=== PATIENT | female | born 1975 | race American Indian/Alaskan Native ===

== ENCOUNTER 2021-12-22 22:14 | Emergency (ER) | payer SELFPAY ==
--- NOTE | 2021-12-23 05:49 | XRay Report ---
CHEST 2 VIEWS INDICATION / CLINICAL INFORMATION: Cough, HTN, Hx CHF. FINDINGS: SUPPORT DEVICES: None. HEART / MEDIASTINUM: No significant abnormality. LUNGS / PLEURA: No significant pulmonary or pleural abnormality. No pneumothorax. ADDITIONAL FINDINGS: No significant additional findings. IMPRESSION: 1. No acute findings. Signer Name: Rui Gomez MD Signed: 12/23/2021 5:45 AM Workstation Name: [email or web address]
[2021-12-23] MEDS ORDERED: ASPIRIN 81 MG TAB CHEW PO ONE (09:22)
[2021-12-23] MEDS ORDERED: IPRATROPIUM 0.02% NEBU 2.5 ML IH ONE (09:23)
[2021-12-23] MEDS ORDERED: ALBUTEROL 2.5 MG/3 ML NEBU IH ONE (09:23)
[2021-12-23] MEDS ORDERED: methylPREDNISolone Sod Succinate 125 MG/2 ML INJ IV ONE (09:23)
[2021-12-23] MEDS ORDERED: ACETAMINOPHEN 500 MG TAB PO ONE (09:24)
[2021-12-23] MEDS ORDERED: ONDANSETRON 4 MG/2 ML INJ IV ONE (09:24)
[2021-12-23] MEDS ORDERED: FAMOTIDINE 20 MG/2 ML INJ IV ONE (09:24)
[2021-12-23 10:07] VITALS: BP 151/92
[2021-12-23 10:24] LABS: Mucus,Urine 3+ /HPF
[2021-12-23 10:37] LABS: Basophils % (Auto) 0.5 % (0.0-1.8); Eosinophils # (Auto) 0.1 K/mm3 (0.0-0.4); Eosinophils % (Auto) 2.9 % (0.0-4.3); Hemoglobin 9.9 gm/dl (10.1-14.3); Lymphocytes # (Auto) 0.9 K/mm3 (1.2-5.4); Lymphocytes % (Auto) 21.4 % (13.4-35.0); Mean Corpuscular HGB Conc 31 % (30-34); Mean Corpuscular Volume 80 fl (79-97); Monocytes # (Auto) 0.7 K/mm3 (0.0-0.8); Platelet Count 216 K/mm3 (140-440); Red Cell Distribution Width 18.3 % (13.2-15.2)
[2021-12-23 10:53] LABS: Color,Urine Yellow (Yellow)
[2021-12-23 11:00] LABS: Alanine Aminotransferase 16 units/L (7-56); Albumin 3.7 g/dL (3.9-5); BUN/Creatinine Ratio 12; Blood Urea Nitrogen 17 mg/dL (7-17); Calcium 9.1 mg/dL (8.4-10.2); Hemolysis Index 6
--- NOTE | 2021-12-23 13:00 | Emergency Department Report ---
- General Chief Complaint: Nausea/Vomiting/Diarrhea Stated Complaint: GENERAL ILLINESS Source: patient, EMS Mode of arrival: Stretcher Limitations: No Limitations - History of Present Illness Initial Comments: Patient is a 46-year-old -[place] female with a history of hypertension and CHF who presents to the ED with complaint of acute onset persistent nasal and sinus congestion, diffuse body aches and pains, persistent dry cough with nausea and vomiting intermittently for the last 1 week. Patient states that in the last 2 days she has not been able to keep anything down because of persistent nausea and vomiting. Patient states that the cough and the shortness of breath is worse at night when she lays down to sleep. Patient states that she also ran out of her Lasix that she has previously taken. Patient denies dizziness, syncope, chest pain, diarrhea, abdominal pain, fever, chills, sore throat, dysuria, urinary frequency and urgency or change in vision and diaphoresis or palpitations. MD Complaint: cough, rhinorrhea, nasal congestion, sinus pain, other (Nausea and vomiting) -: Gradual, week(s) (1) Severity: moderate Severity scale (0 -10): 4 Quality: dull, aching Consistency: constant Improves With: nothing Worsens With: nothing Context: sick contacts Associated Symptoms: denies other symptoms, headache, rhinorrhea, nasal co ngestion, cough, shortness of breath, nausea, vomiting. denies: fever, diaphoresis, stiff neck, chest pain, abdominal pain, diarrhea, rash, right sweats, epistaxis, hoarseness, other Treatments Prior to Arrival: "cold medicine" - Related Data Previous Rx's Medication Instructions Recorded Last Taken Type Albuterol Sulfate [Proair 1 - 2 puff IH Q4H PRN #1 inh 12/23/21 Unknown Rx Respiclick] Azithromycin [Zithromax Z-MILADYS] 250 mg PO DAILY #6 tab 12/23/21 Unknown Rx Benzonatate [Tessalon Perles] 100 mg PO Q8HR #30 cap 12/23/21 Unknown Rx Cetirizine HCl [Zyrtec 10mg tab] 10 mg PO DAILY #30 tab 12/23/21 Unknown Rx Furosemide [Lasix TAB] 20 mg PO QDAY #30 tablet 12/23/21 Unknown Rx Ibuprofen [Motrin] 800 mg PO Q8HR PRN #30 tablet 12/23/21 Unknown Rx Ondansetron [Zofran Odt] 4 mg PO Q8HR PRN #20 tab.rapdis 12/23/21 Unknown Rx methylPREDNISolone [Medrol 4MG 4 mg PO DAILY #21 tab 12/23/21 Unknown Rx DOSEPAK (21 tabs)] Allergies Allergy/AdvReac Type Severity Reaction Status Date / Time No Known Allergies Allergy Unverified 12/22/21 22:26 ED Review of Systems ROS: Stated complaint: GENERAL ILLINESS Other details as noted in HPI Constitutional: denies: chills, fever Eyes: denies: eye pain, eye discharge, vision change ENT: congestion. denies: ear pain, throat pain Respiratory: cough, shortness of breath, wheezing Cardiovascular: denies: chest pain, palpitations Endocrine: no symptoms reported Gastrointestinal: nausea, vomiting. denies: abdominal pain, diarrhea Genitourinary: denies: urgency, dysuria, discharge Musculoskeletal: denies: back pain, joint swelling, arthralgia Skin: denies: rash, lesions Neurological: headache. denies: weakness, paresthesias Psychiatric: denies: anxiety, depression Hematological/Lymphatic: denies: easy bleeding, easy bruising ED Past Medical Hx - Past Medical History Hx Hypertension: Yes Hx Congestive Heart Failure: Yes - Social History Smoking Status: Current Every Day Smoker Substance Use Type: None - Medications Home Medications: Home Medications Medication Instructions Recorded Confirmed Last Taken Type Albuterol Sulfate [Proair 1 - 2 puff IH Q4H PRN #1 inh 12/23/21 Unknown Rx Respiclick] Azithromycin [Zithromax Z-MILADYS] 250 mg PO DAILY #6 tab 12/23/21 Unknown Rx Benzonatate [Tessalon Perles] 100 mg PO Q8HR #30 cap 12/23/21 Unknown Rx Cetirizine HCl [Zyrtec 10mg tab] 10 mg PO DAILY #30 tab 12/23/21 Unknown Rx Furosemide [Lasix TAB] 20 mg PO QDAY #30 tablet 12/23/21 Unknown Rx Ibuprofen [Motrin] 800 mg PO Q8HR PRN #30 tablet 12/23/21 Unknown Rx Ondansetron [Zofran Odt] 4 mg PO Q8HR PRN #20 tab.rapdis 12/23/21 Unknown Rx methylPREDNISolone [Medrol 4MG 4 mg PO DAILY #21 tab 12/23/21 Unknown Rx DOSEPAK (21 tabs)] ED Physical Exam - General Limitations: No Limitations General appearance: alert, in no apparent distress - Head Head exam: Present: atraumatic, normocephalic, normal inspection - Eye Eye exam: Present: normal appearance, PERRL, EOMI Pupils: Present: normal accommodation - ENT ENT exam: Present: normal orophraynx, mucous membranes moist, TM's normal bilaterally, normal external ear exam, other (Grossly congested nasal passages; palpable frontal sinus tenderness) - Neck Neck exam: Present: normal inspection, full ROM - Respiratory Respiratory exam: Present: normal lung sounds bilaterally. Absent: respiratory distress, wheezes, rales, rhonchi, chest wall tenderness, accessory muscle use, decreased breath sounds, prolonged expiratory - Cardiovascular Cardiovascular Exam: Present: normal rhythm, tachycardia, normal heart sounds. Absent: systolic murmur, diastolic murmur, rubs, gallop - GI/Abdominal GI/Abdominal exam: Present: soft, normal bowel sounds. Absent: tenderness, guarding, hyperactive bowel sounds, hypoactive bowel sounds, organomegaly - Extremities Exam Extremities exam: Present: normal inspection, full ROM, normal capillary refill - Back Exam Back exam: Present: normal inspection, full ROM. Absent: tenderness, CVA tenderness (R), CVA tenderness (L), muscle spasm, paraspinal tenderness, vertebral tenderness - Neurological Exam Neurological exam: Present: alert, oriented X3, CN II-XII intact, normal gait, reflexes normal - Psychiatric Psychiatric exam: Present: normal affect, normal mood - Skin Skin exam: Present: warm, dry, intact, normal color. Absent: rash ED Course Vital Signs 12/22/21 12/23/21 12/23/21 22:24 05:05 09:54 Temperature 98.9 F Pulse Rate 110 H 101 H Respiratory 16 26 H 24 Rate Blood Pressure [Left] Blood Pressure 190/116 152/103 [Right] O2 Sat by Pulse 99 99 99 Oximetry 12/23/21 10:05 Temperature 97.8 F Pulse Rate 86 Respiratory 19 Rate Blood Pressure 151/92 [Left] Blood Pressure 151/92 [Right] O2 Sat by Pulse 99 Oximetry ED Medical Decision Making - Lab Data Result diagrams: 12/23/21 10:17 12/23/21 10:17 - Radiology Data Radiology results: report reviewed, image reviewed [facility] [address] [place] [address] XRay Report Signed Patient: RIGOBERTO RIVAS MR#: [id number] : 1975 Acct:[id number] Age/Sex: 46 / F ADM Date: 12/22/21 Loc: ED Attending Dr: Ordering Physician: NITISH WOODS Date of Service: 12/23/21 Procedure(s): XR chest routine 2V Accession Number(s): [id number] cc: NITISH [employer]S Fluoro Time In Minutes: CHEST 2 VIEWS INDICATION / CLINICAL INFORMATION: Cough, HTN, Hx CHF. FINDINGS: SUPPORT DEVICES: None. HEART / MEDIASTINUM: No significant abnormality. LUNGS / PLEURA: No significant pulmonary or pleural abnormality. No pneumotho rax. ADDITIONAL FINDINGS: No significant additional findings. IMPRESSION: 1. No acute findings. Signer Name: Rui Gomez MD Signed: 12/23/2021 5:45 AM Workstation Name: [id number] Transcribed By: Dictated By: Rui Gomez MD Electronically Authenticated By: Rui Gomez MD Signed Date/Time: 12/23/21544 DD/ 4 TD/TT: - Medical Decision Making This is a 46-year-old -[place] female with a history of hypertension and CHF who presents to the ED with complaint of acute onset persistent nasal and s inus congestion, diffuse body aches and pains, persistent dry cough with nausea and vomiting intermittently for the last 1 week. Patient states that in the last 2 days she has not been able to keep anything down because of persistent nausea and vomiting. Patient states that the cough and the shortness of breath is worse at night when she lays down to sleep. Patient states that she also ran out of her Lasix that she has previously taken. In the ED, patient is alert and oriented x3 and is not in distress. All lab test results were reviewed and are all nonactionable. Chest x-ray showed no acute cardiopulmonary abnormalities or pneumonitis. Patient was treated in the ED with DuoNeb and al so received Solu-Medrol 125 IV in the ED. Patient was also treated for nausea and vomiting and given pain medications. On reevaluation, patient felt better, wheezing resolved and the patient was discharged home on medications and advised to follow-up with her primary care physician in 7 to 10 days for reevaluation or return to the ED immediately if symptoms get worse. - Differential Diagnosis URI; bronchitis; pneumonia; COVID-19; CHF; ACS; Critical care attestation.: If time is entered above; I have spent that time in minutes in the direct care of this critically ill patient, excluding procedure time. ED Disposition Clinical Impression: Acute upper respiratory infection, Nausea and vomiting in adult patient Acute bronchitis Qualifiers: Bronchitis organism: other organism Qualified Code(s): J20.8 - Acute bronchitis due to other specified organisms Disposition: HOME / SELF CARE / HOMELESS Is pt being admited?: No Does the pt Need Aspirin: No Condition: Stable Instructions: Acute Bronchitis (ED), Upper Respiratory Infection, Adult, [id number], Cough, Adult, [id number], Acute Bronchitis, Adult, [id number], Nausea and Vomiting, Adult, [id number] Additional Instructions: All lab test results were reviewed and are all nonactionable. Chest x-ray magi wed no acute cardiopulmonary abnormalities or pneumonitis. Take medication as advised and from plenty of fluids. Follow-up with your primary care physician in 7 to 10 days for reevaluation. Return to the ED immediately if symptoms get worse. Prescriptions: Furosemide [Lasix TAB] 20 mg PO QDAY #30 tablet methylPREDNISolone [Medrol 4MG DOSEPAK (21 tabs)] 4 mg PO DAILY #21 tab Ibuprofen [Motrin] 800 mg PO Q8HR PRN #30 tablet PRN Reason: Pain , Severe (7-10) Albuterol Sulfate [Proair Respiclick] 1 - 2 puff IH Q4H PRN #1 inh PRN Reason: Shortness Of Breath Benzonatate [Tessalon Perles] 100 mg PO Q8HR #30 cap Azithromycin [Zithromax Z-MILADYS] 250 mg PO DAILY #6 tab Ondansetron [Zofran Odt] 4 mg PO Q8HR PRN #20 tab.rapdis PRN Reason: Nausea Cetirizine HCl [Zyrtec 10mg tab] 10 mg PO DAILY #30 tab Referrals: ANDRE VILLELA MD [Primary Care Provider] - 3-5 Days Time of Disposition: 13:07 Print Language: ERITREAN
== END 2021-12-23 13:23 | disposition home or self-care (01) ==
LOC: ED 22:14
DX: J06.9 Acute upper respiratory infection, unspecified (principal); J20.8 Acute bronchitis due to other specified organisms; I11.0 Hypertensive heart disease with heart failure; I50.9 Heart failure, unspecified; F17.200 Nicotine dependence, unspecified, uncomplicated; Z79.899 Other long term (current) drug therapy
CPT/HCPCS: 36415; 71046; 80053; 81001; 83690; 83880; 84484; 85025; 94640; 96374; 96375; 99284; J2405; J2930; J3490; 94644